=== PATIENT | male | born 1935 | race Caucasian/White ===

== ENCOUNTER → 2018-01-12 | Outpatient (CLI) | payer MEDICARE ==
[~2018-01-12] MED LIST: ASPI-555 PO; IRON; IRON-15 PO; LEVO100T12 PO; NEBI5TAB8 PO; OMEG300C3; PANT40TA25 PO; SERT50TA12 PO; VIT1CAPS5 PO; VIT1TABL66 PO
== END | disposition home or self-care (01) ==
LOC: OIH 09:02
PROVIDERS: ATTEND Internal Medicine
DX: J84.10 Pulmonary fibrosis, unspecified (principal)
CPT/HCPCS: 71046

== ENCOUNTER → 2018-10-21 | Outpatient (CLI) | payer MEDICARE | END | disposition home or self-care (01) | LOC: RAH 14:59 | PROVIDERS: ATTEND Internal Medicine | DX: I77.810 Thoracic aortic ectasia (principal); K76.89 Other specified diseases of liver; Z90.49 Acquired absence of other specified parts of digestive tract | CPT/HCPCS: 71250 ==

== ENCOUNTER → 2019-07-13 | Outpatient (CLI) | payer MEDICARE ==
[~2019-07-13] MED LIST changes: +DIATR MEGLU/DIATRIZOATE SODIUM 30 ML BOTTLE ONE
== END | disposition home or self-care (01) ==
LOC: RAH 15:43
PROVIDERS: ATTEND Internal Medicine Gastroenterology
DX: K94.20 Gastrostomy complication, unspecified (principal); M16.11 Unilateral primary osteoarthritis, right hip; M85.851 Other specified disorders of bone density and structure, right thigh
CPT/HCPCS: 74018; Q9963

== ENCOUNTER → 2019-12-14 | Outpatient (CLI) | payer MEDICARE ==
[~2019-12-14] MED LIST changes: -DIATR MEGLU/DIATRIZOATE SODIUM 30 ML BOTTLE ONE
== END | disposition home or self-care (01) ==
LOC: OIH 09:43
PROVIDERS: ATTEND Internal Medicine
DX: I70.0 Atherosclerosis of aorta (principal); M43.8X6 Other specified deforming dorsopathies, lumbar region; Z95.4 Presence of other heart-valve replacement
CPT/HCPCS: 71046

== ENCOUNTER 2020-04-08 16:48 | Emergency (ER) | payer MEDICARE | END 2020-04-08 18:00 | disposition home or self-care (01) | LOC: EDH 16:48 | DX: R10.84 Generalized abdominal pain (principal); Z87.891 Personal history of nicotine dependence; Z93.1 Gastrostomy status ==

== ENCOUNTER → 2020-06-24 | Outpatient (CLI) | payer MEDICARE ==
[~2020-06-24] MED LIST changes: -ASPI-555 PO; +ASPI-556 PO
== END | disposition home or self-care (01) ==
LOC: OIH 10:44
PROVIDERS: ATTEND Internal Medicine
DX: I51.7 Cardiomegaly (principal); I50.9 Heart failure, unspecified
CPT/HCPCS: 71046

== ENCOUNTER 2020-09-02 12:43 | Observation (INO) | payer MEDICARE ==
[~2020-09-02] VITALS: Ht 177.8 cm; Wt 80.9 kg
[~2020-09-02 12:43] MED LIST changes: -PANT40TA25 PO; +PANT40TA54 PO
[2020-09-02 14:04] LABS: BASOPHILS % (AUTO) 0.2 % (0.0-5.0); EOSINOPHILS % (AUTO) 1.1 % (0.0-8.0); HEMATOCRIT 46.1 % (42-54); LYMPHOCYTES % (AUTO) 16.3 % (21.0-51.0); MEAN CORPUSCULAR HEMOGLOBIN 27.6 pg (27.0-33.0); MEAN CORPUSCULAR HGB CONC 31.2 g/dL (32.0-36.0); MEAN CORPUSCULAR VOLUME 88.5 fL (79-99); MONOCYTES % (AUTO) 7.9 % (3.0-13.0); NEUTROPHILS % (AUTO) 74.2 % (40.0-77.0); PLATELET COUNT (AUTO) 196 K/uL (130-400); RED BLOOD CELL COUNT(AUTO) 5.21 MIL/uL (4.50-6.20); RED CELL DISTRIBUTION WIDTH 14.5 % (11.0-15.5)
[2020-09-02 14:12] LABS: CREATININE 1.1 mg/dL (0.5-1.5); POTASSIUM 4.5 mmol/L (3.5-5.1)
[2020-09-02 14:16] LABS: ALBUMIN 3.3 g/dL (3.5-5.0); BILIRUBIN,TOTAL 0.5 mg/dL (0.2-1.0); TOTAL PROTEIN, SERUM 8.1 g/dL (6.0-8.3)
[2020-09-02 14:17] LABS: INR 0.96 (0.85-1.15); PARTIAL THROMBOPLASTIN TIME 25.6 SEC (26.3-35.5); PROTHROMBIN TIME 10.4 SEC (9.6-11.6)
--- NOTE | 2020-09-03 08:16 | NUR ---
HEART SURGERY AND STILL HAS A LEAKING VALUE Addendum: 09/03/20 at 0832 by AVIVA WADE RN RN Amended: Links added.
--- NOTE | 2020-09-03 08:18 | NUR ---
HAS PEG TUBE THAT CAME 09/02/20 Addendum: 09/03/20 at 0832 by AVIVA WADE RN RN Amended: Links added.
[2020-09-03] MEDS ORDERED: METO50TA18 PO (08:41)
[2020-09-03] MEDS ORDERED: APIX5TAB PO (08:41)
[2020-09-03] MEDS ORDERED: DONE10TA43 PO (08:41)
[2020-09-03 09:07] LABS: BASOPHILS % (AUTO) 0.2 % (0.0-5.0); EOSINOPHILS % (AUTO) 0.4 % (0.0-8.0); HEMATOCRIT 44.6 % (42-54); LYMPHOCYTES % (AUTO) 11.7 % (21.0-51.0); MEAN CORPUSCULAR HEMOGLOBIN 27.9 pg (27.0-33.0); MEAN CORPUSCULAR HGB CONC 31.2 g/dL (32.0-36.0); MEAN CORPUSCULAR VOLUME 89.4 fL (79-99); MONOCYTES % (AUTO) 5.9 % (3.0-13.0); NEUTROPHILS % (AUTO) 81.7 % (40.0-77.0); PLATELET COUNT (AUTO) 182 K/uL (130-400); RED BLOOD CELL COUNT(AUTO) 4.99 MIL/uL (4.50-6.20); RED CELL DISTRIBUTION WIDTH 14.4 % (11.0-15.5)
[2020-09-03 09:17] LABS: POTASSIUM 4.7 mmol/L (3.5-5.1)
[2020-09-03 09:27] LABS: INR 0.99 (0.85-1.15); PARTIAL THROMBOPLASTIN TIME 26.1 SEC (26.3-35.5); PROTHROMBIN TIME 10.7 SEC (9.6-11.6)
[2020-09-03 09:29] LABS: ALBUMIN 3.1 g/dL (3.5-5.0); BILIRUBIN,TOTAL 0.7 mg/dL (0.2-1.0); TOTAL PROTEIN, SERUM 7.8 g/dL (6.0-8.3)
--- NOTE | 2020-09-03 12:05 | NUR ---
PATIENT WAS ADMITTED TO ROOM 330. IS AT BEDSIDE AND SHE PROCEEDED TO SHOW ME THE J-TUBE. TIP OF THE J-TUBE IS RIPPED. SIZE NOTED TO BE 24 FR 7-10 ML. PATIENT DENIES ANY PAIN OF DISTRESS.
[2020-09-03 12:15] VITALS: BP 132/89
[2020-09-03] MEDS ORDERED: LORAZEPAM 2 MG/ML 1 ML VIAL IVP PRN (12:30)
[2020-09-03] MEDS ORDERED: PHARMACY COMMUNICATION MISC SCH (12:30)
[2020-09-03] MEDS ORDERED: LABETALOL 20 MG/4 ML DISP.SYRIN IV PRN (12:30)
[2020-09-03] MEDS ORDERED: DEXTROSE 5 %-0.45 % NACL 1,000 ML IV SCH (12:45)
--- NOTE | 2020-09-03 13:43 | NUR ---
Dr. Pedroza was called, notified, and consulted regarding the patient in 330 (Javier Leung) and how his J-Tube was dislodged; Dr. Pedroza proceeded to tell me that there was nothing that he could do if [facility] didn't have any of the supplies; he proceeded to tell me that "should he go in the parking lot and make one himself and if [facility] doesn't have the supplies to send the patient to [facility]", he then hung up the phone. Dr. Ti Ordoñez was consulted and paged. He called immediately back and said to contact Dr. Rangel because he was carton wrapper. I stopped the consult to Dr. Ordoñez and changed it to Dr. Rangel, Dr. Rangel was notified and he called back to let me know that they do not do J-tubes and to call Interventional Radiology.
--- NOTE | 2020-09-03 14:30 | NUR ---
INTERVENTIONAL RADIOLOGY WAS MADE AWARE OF THE PATIENT'S SITUATION. ROBERT LET ME KNOW THAT SHE TALKED T THE RADIOLOGIST AND TOLD ME TO GO AHEAD AND CALL AUTOMOTIVE STARTER REPAIRER TO SEE IF THE PROCEDURE COULD BE DONE HERE. HOWEVER, I WAS INFORMED BY THE AUTOMOTIVE STARTER REPAIRERSOFTWARE QUALITY ANALYST THAT THE RADIOLOGIST HAD ALREADY SPOKE TO DR COX REGARDING THIS PATIENT AND THAT HE RECOMMENDED SURGICAL INTERVENTION. ACCORDING TO THE RADIOLOGIST HE WAS AWARE OF THIS CASE SINCE YESTERDAY AND NO FOLLOW UP WAS MADE.
--- NOTE | 2020-09-03 15:16 | NUR ---
DR COX ORDERED FOR PATIENT TO BE TRANSFERRED TO [facility]. DR HOOKS MADE AWARE OF THE TRANSFER. TIN TIE MACHINE OPERATOR AUTOMATIC ALEXANDR, AWARE OF THE TRANSFER. INFORMED PATIENT ON THE SITUATION. NO CONCERNS VOICED.
--- NOTE | 2020-09-03 16:16 | NUR ---
call received for pt [place] [facility] [place] service Dr oshea consulted Dr Pedroza . [phone] [facility] ROBERT Jamil rn no beds still holding in the ER primary nurse made aware. Delmer beal
[2020-09-03 16:59] VITALS: BP 144/95
--- NOTE | 2020-09-03 17:13 | NUR ---
INFORMED DR COX OF PATIENT BP:154/110 AND HR 118. TELE ORDER RECEIVED.
--- NOTE | 2020-09-03 18:00 | NUR ---
SPOKE TO [facility] SPOUSE VIA PHONE FOR CM ASSESSMENT PATIENT IS MOSTLY INDEPENDENT IN HIS ADLS' BUT DOES NOT DRIVE, [facility] PROVIDES ALL TRANSPORT STATES THEY HAVE 6 STEPS UP TO HOUSE PT HAS NO TROUBLE W/ STAIRS , HAS GOOD MOBILITY . NO PROVIDER OR MADDI SERVICES, HAS A CPAP MACHINE AND A PEG TUBE, FOLLOW WITH DR. COX REGULARLY. DCP AT THIS TIME IS HOME , CM TO FOLLOW, TEXT TO KENNY MCGOVERN PLAN OF CARE, AWAITING RESPONSE Addendum: 09/04/20 at 0801 by EMIR GRIFFIN RN CM Amended: Links added.
--- NOTE | 2020-09-03 18:26 | NUR ---
SPOKE WITH SPOUSE [facility] FOR DC PLANNING VIA PHONE STATES PT IS MOSTLY INDEPENDENT, USES NO DME, HAS NO TROUBLE WITH THE STAIRS OUTSIDE THEIR HOME AND DOES NOT DRIVE. NO HOME HEALTH OR SERVICES. FOLLOWING WITH DR. COX REGULARLY. HAS A CPAPA, BUT NO INHALERS OR NEBULIZER. Addendum: 09/03/20 at 1828 by EMIR GRIFFIN RN CM Amended: Links added.
[2020-09-03 20:12] VITALS: BP 144/99
--- NOTE | 2020-09-03 20:31 | NUR ---
2000 [place] [facility] [place] GIVEN BED ASSIGNMENT ROOM 8109 AND PRIMARY NURSE TO CALL REPORT TO [phone] REPORT TO INCOMING HS . NAYANARES RN
--- NOTE | 2020-09-03 22:36 | NUR ---
REPORT CALLED TO [facility] AT [facility]. PATIENT TO BE IN ROOM 3342. I CALLED PT'S MRS. GINNY BHATIA TO UPDATE.
[2020-09-03 23:00] VITALS: BP 103/76
--- NOTE | 2020-09-03 23:35 | NUR ---
[facility] TRANSFERRED PATIENT TO [facility] TO BE ON ROOM 3342. ALL BELONGINGS PLACED IN BAG.
== END 2020-09-03 23:35 | disposition short-term general hospital (02) ==
LOC: EDH 12:43 → EDHIP 18:06 → 3AH 09-03 11:55
PROVIDERS: ADMIT Internal Medicine; ATTEND Internal Medicine
DX: K94.13 Enterostomy malfunction (principal); Z20.828 Contact with and (suspected) exposure to other viral communicable diseases; J69.0 Pneumonitis due to inhalation of food and vomit; E86.0 Dehydration; K94.23 Gastrostomy malfunction; J44.9 Chronic obstructive pulmonary disease, unspecified; I50.32 Chronic diastolic (congestive) heart failure; F03.90 Unspecified dementia, unspecified severity, without behavioral disturbance, psychotic disturbance, mood disturbance, and anxiety; Z95.3 Presence of xenogenic heart valve
CPT/HCPCS: 36415 ×2; 71045; 80053 ×2; 85025 ×2; 85610 ×2; 85730 ×2; 87426; 93005; 96360; 96361; 99285; G0378 ×7; J7042; U0003